=== PATIENT | male | born 1970 | race Hispanic/Latino ===

== ENCOUNTER 2016-10-15 18:24 | Emergency (ER) | payer OTHER ==
[~2016-10-15] VITALS: Ht 165.1 cm; Wt 93.7 kg
[2016-10-15] MEDS ORDERED: PREDNISONE10 M1 PO (20:21)
[2016-10-15] MEDS ORDERED: CHERATUSSIN AC473 ML PO (20:23)
[2016-10-15 20:39] VITALS: BP 154/78
== END 2016-10-15 20:40 | disposition home or self-care (01) ==
LOC: EME 18:24
DX: J20.9 Acute bronchitis, unspecified (principal)
CPT/HCPCS: 71020; 94640; 99281; 99284; J7512